=== PATIENT | female | born 1980 | race Caucasian/White ===

== ENCOUNTER 2017-05-04 18:30 | Emergency (ER) | payer OTHER, SELFPAY ==
[~2017-05-04 18:30] MED LIST: Iopamidol 370 76% 100 ML VIAL ONE
[2017-05-04 19:05] LABS: Bilirubin Negative (Negative); Blood, Urine Small (Negative); Clarity Clear (Clear); Glucose, Urine (Dipstick) Negative (Negative); Leukocyte Negative (Negative); Nitrite Negative (Negative); Protein, Urine (Dipstick) Negative (Neg-Trace); Urobilinogen 0.2 mg/dL (0.2-1.0); pH, Urine 7.5 (5.0-9.0)
[2017-05-04 19:10] LABS: #Basophils 0.2 thou/uL (0.0-0.2); #Eosinphils 0.2 thou/uL (0.0-0.7); #Lymphocytes 5.4 thou/uL (1.20-3.40); #Monocytes 1.1 thou/uL (0.11-0.59); #Neutrophils 9.8 thou/uL (1.40-6.50); %Eosinophils 1.1 % (0.0-10.0); %Lymphocytes 32.5 % (21.0-51.0); %Monocytes 6.7 % (0.0-10.0); %Neutrophils 58.6 % (42.0-75.0); Hemoglobin 13.2 g/dL (12.0-16.0); Mean Corpuscular HGB CONC 33.9 g/dL (32.0-36.0); Mean Corpuscular Hemoglobin 31.7 pg (27.0-31.0); Mean Corpuscular Volume 93.7 fl (81.0-99.0); Mean Platelet Volume 8.9 fL (7.4-10.4); Platelet Count 314 thou/uL (130-400); RBC Distribution Width 12.3 % (11.5-14.5); Red Blood Cell (RBC) Count 4.16 mill/uL (4.20-5.40); White Blood Cell (WBC) Count 16.6 thou/uL (4.8-10.8)
[2017-05-04 19:13] LABS: Amphetamine Not Detected (NotDetected); Barbiturates Screen Not Detected (NotDetected); Benzodiazepine Screen Not Detected (NotDetected); Cocaine Metabolite Screen Not Detected (NotDetected); Medtox Control Line Valid? VALID (VALID); Methadone Not Detected (NotDetected); Methamphetamine Not Detected (NotDetected); Opiate Screen Not Detected (NotDetected); Oxycodone Screen Not Detected (NotDetected); Phencyclidine (PCP) Not Detected (NotDetected); THC/Cannabinoid Screen Not Detected (NotDetected); Tricyclic Screen Not Detected (NotDetected)
[2017-05-04 19:23] LABS: ALT (SGPT) 17 U/L (8-55); AST (SGOT) 19 U/L (5-34); Albumin 4.8 g/dL (3.5-5.0); Alkaline Phosphatase 87 U/L (40-150); Anion Gap 17 mmol/L (10-20); BUN (Urea Nitrogen) 11 mg/dL (7.0-18.7); Bilirubin, Total 0.3 mg/dL (0.2-1.2); Calc. Creatinine Clearance 0 mL/min (70-130); Calcium 9.4 mg/dL (7.8-10.44); Carbon Dioxide 22 mmol/L (22-29); Chloride 103 mmol/L (98-107); Estimated GFR-MDRD 68; Glucose 85 mg/dL (70-105); Lipase 26 U/L (8-78); Potassium 3.9 mmol/L (3.5-5.1); Protein, Total 7.8 g/dL (6.0-8.3); Sodium 138 mmol/L (136-145)
[2017-05-04 19:26] LABS: RBC/HPF 0-3 HPF (0-3)
[2017-05-04 19:27] LABS: Bacteria/HPF 1+ HPF (None Seen); WBC/HPF 0-3 HPF (0-3)
[2017-05-04] MEDS ORDERED: Sodium Chloride 0.9% 1,000 ML ONE (19:28)
[2017-05-04] MEDS ORDERED: Fentanyl 100 MCG/2 ML VIAL ONE ×3 (19:28→22:50)
--- NOTE | 2017-05-04 21:17 | CT ---
CT OF THE ABDOMEN AND PELVIS WITH CONTRAST 05/04/17 COMPARISON: 01/07/16 HISTORY: Right back and flank pain. TECHNIQUE: Multiple contiguous axial images are obtained in a CT of the abdomen and pelvis with contrast. Coron al reformats were performed. FINDINGS: There is subcentimeter hyperdensities in both kidneys that are too small to definitely characterize but likely represent cysts. No hydronephrosis is seen in either kidney. No calcifications are seen i n the uterus or urinary bladder. The liver, gallbladder, adrenal glands, spleen, and pancreas are unremarkable. No free air, free flu id or stranding changes are seen in the abdomen or pelvis. The uterus has been removed. A 3.3 cm cystic structure in the left aspect of the pelvis likely repre sents a left ovarian cyst/follicle. The large and small bowel are unremarkable. The appendix is norm al. No abdominal or pelvic lymphadenopathy are seen. The abdominal wall soft tissues and visualized inferior thorax are unremarkable. The bones are unrem arkable. IMPRESSION: 1. Bilateral renal cysts. 2. No urinary collecting system calcifications. 3. Left ovarian cyst versus follicle. POS: [facility]
[2017-05-04] MEDS ORDERED: Sodium Chloride 0.9% 100 ML ONE (22:33)
[2017-05-04] MEDS ORDERED: cefTRIAXone\\ROCEPHIN 1 GM VIAL ONE (22:33)
== END 2017-05-04 23:04 | disposition short-term general hospital (02) ==
LOC: NAV ERS 18:30
DX: R10.9 Unspecified abdominal pain (principal); D72.829 Elevated white blood cell count, unspecified; R31.9 Hematuria, unspecified; F32.9 Major depressive disorder, single episode, unspecified; F17.210 Nicotine dependence, cigarettes, uncomplicated
CPT/HCPCS: 36415; 74177; 80053; 80306; 81003; 81015; 83605; 83690; 85025; 87040; 87086; 96361; 96365; 96375; 96376; J0696; J3010; J7050